=== PATIENT | female | born 1950 | race Caucasian/White ===

== ENCOUNTER → 2023-10-20 01:06 | Outpatient (CLI) | payer OTHER, MEDICAID, SELFPAY ==
--- NOTE | 2023-10-20 | DI.NM_ITS ---
Exam(s) NM BONE SCAN 3 PHASE EXAM: NM BONE SCAN 3 PHASE CLINICAL HISTORY: PRESSURE ULCER OF L BUTTOCK, UNSPEC, STAGE L89.329. TECHNIQUE: Injected Dose: 25 mCi Tc-99m MDP COMPARISON: No exams were available for comparison FINDINGS: Perfusion phase images: No asymmetric hyperemia demonstrated Blood Pool phase images: Photopenic zones in the hips consistent with prostheses. No abnormal asymme tric uptake. Delayed images: No abnormal uptake in the region of the ischial tuberosities. Small focus of uptake in the inferior aspect of the left sacroiliac joint is probably degenerative. Area of increased uptake in the right hip greater tuberosity region best seen on the posterior view p robably related to prosthesis. No abnormal uptake in the sacrum. No significant abnormal spinal uptake nor abnormal radiopharmaceutical uptake is seen in the rib cage s nor in the long bones with the exception of some degenerative uptake in both wrists. Also in the r ight knee at the patellar level which is most probably related to degenerative changes in the patello femoral compartment of the right knee. IMPRESSION: 1. Findings as above but without evidence to suggest osteomyelitis in the bones of the pelvis in this patient apparently has decubitus ulcer. DATA REPOSITORY:
== END ==
PROVIDERS: PCP Family Medicine; Visit Provider Surgery
DX: L89.329 Pressure ulcer of left buttock, unspecified stage (principal)
CPT/HCPCS: 78315